=== PATIENT | male | born 1940 | race Caucasian/White ===

== ENCOUNTER → 2023-12-19 10:24 | Outpatient (REF) | payer MEDICARE, SELFPAY | LOC: DHCBS MAIN 10:24 | PROVIDERS: ATTENDING PHYSICIAN Internal Medicine Cardiovascular Disease; FAMILY PHYSICIAN Family Medicine | DX: I49.1 Atrial premature depolarization (principal) | CPT/HCPCS: 93306 ==

== ENCOUNTER → 2024-01-24 11:34 | Outpatient (REF) | payer MEDICARE, SELFPAY | LOC: DHCBC/DCA 11:34 | PROVIDERS: ATTENDING PHYSICIAN Internal Medicine Cardiovascular Disease; FAMILY PHYSICIAN Family Medicine | DX: I45.10 Unspecified right bundle-branch block (principal); R07.89 Other chest pain | CPT/HCPCS: 78452; 93017; A9500; J2785 ==

== ENCOUNTER 2024-01-28 07:34 | Day surgery (SDC) | payer MEDICARE, SELFPAY ==
[2024-01-28] VITALS (23 sets, daily range): BP systolic 115–163; BP diastolic 49–101; BMI 41.9
[2024-01-28 08:08] LABS: Hematocrit 47.1 % (39.0-52.0); Hemoglobin 16.5 g/dL (13.0-18.0); Mean Corpuscular Hgb 31.7 pg (27.0-31.0); Mean Corpuscular Volume 90.4 fL (80.0-94.0); Mean Platelet Volume 10.3 fL (7.4-10.4); Platelet Count 182 10^3/uL (130-400); Red Blood Cell Count 5.21 10^6/uL (4.70-6.10); Red Cell Dist. Width 13.3 % (11.5-14.5); White Blood Cell Count 8.9 10^3/uL (4.8-10.8)
[2024-01-28 08:14] LABS: Blood Urea Nitrogen 20 mg/dl (9-20); Calcium 9.3 mg/dl (8.4-10.2); Carbon Dioxide 25 mmol/L (22-30); Chloride 103 mmol/L (98-107); Estimated Creatinine Clearance 59 ml/min; Glucose 113 mg/dl (70-99); Potassium 4.8 mmol/L (3.5-5.1); Sodium 138 mmol/L (135-145); eGFR > 60.00
[2024-01-28] MEDS: NSS 353 ML IV (08:31)
[2024-01-28] MEDS: LOW STRENGTH ASPIRIN 81 MG PO (08:34)
--- NOTE | 2024-01-28 11:15 | PTCARENOTE ---
Pt arrived, oriented to room and unit. Aox3, no complaints of pain. Right radial site CDI. Educated pt on restrictions. Call osborne within reach.
--- NOTE | 2024-01-28 12:35 | ITS.CL.CATH ---
Acquisitions Logistics Analyst - Catheterization
Cardiac Catheterization
Procedure Report:
LEFT HEART CATHETERIZATION
Date of Procedure: January 28, 2024
Referring: Dr. Vaughn Moreland
PROCEDURES:
1. Left heart catheterization with coronary and single-plane left ventriculography
INDICATION: This is an 83-year-old gentleman with a past medical history notable for prostate cancer followed by Dr. Toy Souza ([phone]) at [facility]. He reports recurring issues with radiation cystitis and reports
intermittent bleeding on low-dose aspirin therapy which he states occurs on an almost weekly basis. He has a history of dizziness and frequent PACs as well as short runs of atrial tachycardia. He developed chest discomfort and recent stress study
high risk for which he is now referred for coronary angiography
ACCESS: Right radial artery, 6 Indonesian sheath
HEMODYNAMICS : (mmHg)
AO (s/d) : 118/74
CORONARY FINDINGS
DOMINANCE: Right
LEFT MAIN: Normal
LEFT ANTERIOR DESCENDING: The LAD arises normally from the left main and runs in the anterior interventricular groove. There is moderate calcification in the proximal to mid LAD. There is a 80-90% eccentric plaque in the proximal LAD and 40% mid
LAD stenosis beyond the first diagonal branch. The remainder of the LAD has minor irregularities but no focal obstructive stenosis.
RAMUS: Moderate caliber vessel is widely patent
CIRCUMFLEX: The circumflex is a medium caliber nondominant vessel that supplies a small to medium caliber OM1 and has a 40% proximal stenosis and small OM2
RIGHT CORONARY ARTERY: The right coronary artery was cannulated with an AR mod diagnostic catheter. The right coronary artery has mild irregularities over its course with no focal obstructive stenosis. The PDA is a medium caliber vessel that is
widely patent
VENTRICULOGRAPHY: Not done
RADIATION SUMMARY: Fluoro Time (min): 8.0, Dose (mGy): 556.7, DAP (Gy.cm2) : 31.4
Closure Device: TR band
CONCLUSIONS
1. High-grade proximal LAD stenosis (80-90% eccentric plaque) with moderate but noncritical coronary disease in the LAD, circumflex, RCA
2. Recurring hematuria secondary to radiation cystitis. I reached out to Dr. Toy Souza at [facility]
RECOMMENDATIONS
1. Will ask urology to evaluate the patient. Dr. Morales has been consulted.
2. Continue aspirin
3. Patient will likely return to the catheterization laboratory on 01/29/2024 for stenting of the proximal LAD and will attempt to limit duration of dual antiplatelet therapy. I believe PCI risks probably remain preferable to robotic BARRETO-LAD or
open BARRETO-LAD given his age.
Copy to: Dr. Vaughn Moreland
--- NOTE | 2024-01-28 13:22 | CM ---
spoke to pt in room, he is prev indep, lives with his in a 1 story condo with an elevator in the dg. she denies any dme's or dc planning needs. plan is for dc to home when medically stable.
--- NOTE | 2024-01-28 13:47 | CONSULT.CT ---
Consultation
-
Date/Time Consultation Requested: 01/28/24
Date/Time Consultation Performed: 01/28/24 1345
Requesting Provider: Dr. Vaughn Calderon MD.
Performing Provider: Unique Aguilar PA-C on behalf of Dr. Frankie Burnham MD.
Reason for Consultation: Surgical evaluation for coronary artery revascularization
Patient History
Physicians
Family Physician: Dr. Petra Steele MD.
Outpatient Clinical Systems Analyst: Dr. Vaughn Moreland MD.
Inpatient Clinical Systems Analyst: Dr. Vaughn Calderon MD.
History of Present Illness
Patient is an extremely pleasant 83-year-old male with a past medical history significant for prostate cancer status post prostatectomy and radiation in 2007 performed at [facility] by Dr. Vaughn Gorman MD. patient has ongoing
radiation cystitis has been experiencing hematuria.
He has had ongoing and progressive dizziness associated with vertigo as well as chest discomfort. This has been described as stable angina and presents with exertion and subsides with rest. On 01/24/2024 patient underwent nuclear stress test which
was abnormal showing distal anterior, apical, and inferior apical and septal ischemia. Ejection fraction fraction was estimated to be 59%.
Given abnormal stress test he was scheduled for an elective coronary angiogram. Subsequent cardiac catheterization revealed single-vessel proximal LAD disease.
Cardiothoracic surgery was consulted for evaluation regarding coronary artery revascularization.
Patient also underwent transthoracic echocardiogram on 12/19/23 revealing an ejection fraction of 62%. Mitral valve revealing trace MR. Aortic valve revealing trace AI. Tricuspid valve revealing trace TR. And a pulmonic valve revealing trace NJ.
LV SD 24, LVDD 40, PAP's could not be determined.
Past Medical History
Past Medical History: Other
Prostate cancer status post prostatectomy and radiation�2007 at [facility] by Dr. Vaughn Gorman
Radiation cystitis
History of frequency and hematuria
HTN
HLD
GERD
Depression
History of UTI
Morbid obesity, BMI 41.9
Past Surgical History
Past Surgical History: Other
Bilateral inguinal hernia repair 2005
Cataract surgery
Tonsillectomy
Hemorrhoid banding/repair of rectal fistula 2013
Prostatectomy 2007
TURP
Dental History
Noncontributory
Family History
Mother: at Age and Cause of (Complications of heart disease)
Father: at Age
Family Medical History: CAD
Social History
Alcohol: Daily (1.5-2.5 glasses of wine daily)
Drug: None
Tobacco: Former Smoker (Quit 50 years ago)
Personal: (Lives with his . Has a total of 2 children)
Living: With Spouse
Employment: Retired (Formally worked in the [employer] industry)
Allergies
Allergy/AdvReac Type Severity Reaction Status Date / Time
azithromycin [From Zithromax] Allergy Unknown Unknown Verified 01/28/24 08:30
piperacillin sodium Allergy rash/itchin Verified 04/18/23 10:40
[From Zosyn] g/headache/
wheezing
sertraline [From Zoloft] Allergy Unknown Verified 04/18/23 10:40
tazobactam sodium Allergy Possible Verified 04/18/23 10:40
[From Zosyn] ADR-rash/itching/headache
Home Medications
Medication Instructions Recorded Confirmed Type
aspirin 81 mg tablet,delayed 81 mg PO QPM 06/22/14 01/28/24 History
release
citalopram 20 mg tablet 20 mg PO DAILY 06/22/14 01/28/24 History
benazepril 10 mg tablet (Lotensin) 10 mg PO HS 08/29/19 01/28/24 History
cholecalciferol (vitamin D3) 25 1,000 units PO DAILY 08/29/19 01/28/24 History
mcg (1,000 unit) tablet
methylcellulose (laxative) 500 mg 1,000 mg PO BID 08/29/19 01/28/24 History
tablet (Citrucel)
miconazole nitrate 2 % topical 1 applic topical DAILYPRN PRN 08/29/19 01/28/24 History
ointment (Triple Paste AF) FORESKIN IRRITATION
polyvinyl alcohol-povidone (PF) 1 drp BOTH EYES Q4HPRN PRN dry eye 08/29/19 01/28/24 History
1.4 %-0.6 % eye drops in a
dropperette (Refresh Classic (PF))
tafluprost (PF) 0.0015 % eye drops 1 ea BOTH EYES DAILY 08/29/19 01/28/24 History
in a dropperette (Zioptan (PF))
cyanocobalamin (vitamin B-12) 1,000 mcg PO DAILY #30 tabs 08/31/19 01/28/24 Rx
1,000 mcg tablet
thiamine HCl (vitamin B1) 100 mg 100 mg PO BID #20 tabs 08/31/19 01/28/24 Rx
tablet
furosemide 20 mg tablet (Lasix) 20 mg PO DAILY PRN swelling 01/28/24 01/28/24 History
meclizine 25 mg tablet 12.5 mg PO Q8HPRN PRN dizziness 01/28/24 01/28/24 History
metoprolol succinate 25 mg 25 mg PO DAILY 01/28/24 01/28/24 History
tablet,extended release 24 hr
ropinirole 0.5 mg tablet 0.5 mg PO QHS 01/28/24 01/28/24 History
timolol maleate 0.5 % eye drops 1 drp ophthalmic (eye) BID 01/28/24 01/28/24 History
trospium 20 mg tablet 20 mg PO BID 01/28/24 01/28/24 History
Review of Systems
-
History Source: Patient
General: Reports Fatigue; Denies Fever, Weight Gain, Weight Loss, Night Sweats or Chills
HEENT: Denies Visual Changes, Dysphagia, Hoarseness or Mouth Pain
Respiratory: Denies SOB, YAÑEZ, Cough, Asthma or PND
Cardiac: Reports Chest Pain and Edema; Denies CAD, Known Vascular Disease, Palpitations, Nausea, Vomiting or Diaphoresis
Abdomen/GI: Reports Reflux and Indigestion; Denies Abdominal Pain, Nausea, Vomiting, Diarrhea, Constipation, BRBPR or Ulcers
: Reports Frequency, Hematuria and Nocturia; Denies Incontinence
Musculoskeletal: Reports Edema; Denies Myalgias, Arthralgias or Joint Pain
Skin: Denies Rash
Neurological: Reports Dizzy; Denies CVA, TIA, Headaches, Syncope, Weakness, Numbness or Seizures
Vascular: Denies Claudication or PVD
Physical Exam
Vital Signs
Temp 97.6 F 01/28/24 11:15
Temp route: Oral 01/28/24 11:15
Pulse 61 01/28/24 10:40
Rhythm: Normal sinus rhythm 01/28/24 12:24
With- PAC's 01/28/24 12:24
Resp Rate 18 01/28/24 11:15
Blood pressure 141/54 01/28/24 10:41
Blood pressure extremity used: Left upper arm 01/28/24 11:15
Position: Lying 01/28/24 11:15
MAP (cuff-Yesy Monitor) 70 01/28/24 10:41
SaO2 97 01/28/24 11:15
Oxygen Mode of Delivery Room air 01/28/24 11:15
Can the patient verbally communicate their pain? Yes 01/28/24 11:54
Actual Weight 259 lb 8 oz 01/28/24 07:56
Body Mass Index (BMI) 41.9 01/28/24 07:56
Labs
01/28/24 07:49
01/28/24 07:49
Exam
General: Well Developed, Well Nourished, No Apparent Distress and Other (Obese)
HEENT: Normocephalic, Moist Mucous Membranes, Atraumatic, PERRLA and EOMI
Neck: Trachea Midline; Negative Carotid Bruit
Respiratory: Clear; Negative Wheezes, Crackles, Rhonchi or Accessory Muscle Use
Cardiac: S1/S2 and Regular Rhythm; Negative Murmur, Rub or Gallop
GI: Soft, Non Tender, Non Distended and Normal Bowel Sounds
Rectal: Deferred by Provider
Skin: Warm and Dry; Negative Rash
Neuro: AO x 3, No Motor Deficits and CN X-XII Intact
Extremities: Lower Level Edema (Trace); Negative Upper Level Edema, Upper Level Cyanosis, Lower Level Cyanosis, Upper Level Clubbing or Lower Level Clubbing
Psych: Calm
Assessment / Plan
-
Assessment:
83-year-old male with PMH of:
Prostate cancer status post prostatectomy and radiation�200 at [facility] by Dr. Vaughn Gorman
Radiation cystitis
History of frequency and hematuria
HTN
HLD
GERD
Depression
History of UTI
Morbid obesity, BMI 41.9
Now with newly diagnosed:
Single-vessel proximal LAD disease with preserved left ventricular ejection fraction
Plan:
Patient's case will be discussed with attending physician Dr. Frankie Burnham MD.
Patient is being evaluated by the cardiothoracic surgery service for coronary artery revascularization. However, given his history of prostate cancer status post prostatectomy and radiation with radiation cystitis and hematuria PCI is also being
considered.
Patient's STS risk stratification score was calculated and outlined below.
Attending physician will review the patient's case and further decision making will be had after full review and discussion with Cardiology.
Procedure Type:�Isolated CABG
PERIOPERATIVE OUTCOME ESTIMATE %
Operative Mortality 2.89%
Morbidity & Mortality 9.64%
Stroke 0.779%
Renal Failure 1.73%
Reoperation 2.19%
Prolonged Ventilation 5.76%
Deep Sternal Wound Infection 0.224%
Long Hospital Stay (>14 days) 5.81%
Short Hospital Stay (<6 days)* 29.3%
Clinical Summary
Planned Surgery: Isolated CABG, Urgent, First cardiovascular surgery
Demographics: 83 year old, male, 117kg, 168cm, BMI: 41.4 kg/m�
Lab Values: Creatinine: 1.1 mg/dL, Hematocrit: 47.1%, WBC Count: 8.9 10�/�L, Platelet Count: 333726 cells/�L
Substance Abuse: Never smoker
Risk Factors / Comorbidities: Cancer <=5 yrs, Hypertension
Cardiac Status: Ejection Fraction = 55%
Coronary Artery Disease: 3 vessels diseased, Proximal LAD Stenosis >= 70%, Unstable Angina
Valve Disease: Trivial/Trace AR, Trivial/Trace MR, Trivial/Trace TR
--- NOTE | 2024-01-28 15:42 | PTCARENOTE ---
Assumed care of pt from day RN. Pt received awake and alert, Ox3. VSS, CM shows NSR with occasional PAC's, POX 96% on RA. Right radial site CDI with normal CMS to extremity. Awaiting urology CX. He denies any pain or discomfort.
--- NOTE | 2024-01-28 17:38 | W.PN.URO.CBU ---
Today's Communication / Plan
-
PROBABLE STENT TOMORROW BUT RECOMMEND DISCUSSSUIN WITH DR MIN TEAM AND I REGAN TEXTED PA X 2 TODAY
Assessment / Plan
-
DIFFICULT POSITION PT HIGH RISK FOR SURGERY AND YET HIGH RISK FOR BLEDING FROM DAPT WITH STENT IT IS POSSIBLE THAT THECOMBINED BLAEDING ON DAPT MAY ACTUALLLYBE ESS THAN THE RISK FOR OPEN OR ROBOTIC SUT-RGERY DR WARD TEAM NOTIFIED
Diagnosis
-
Date of Service: January 28, 2024
-
Patient Diagnosis:
radiation cystitis with weekly hematuria cured prostate cancer preop stents and DAPT
Post Op Day:
Subjective
-
NO HEMATURIA TODAY OK STREAM
Objective
-
Vital Signs
Temp Pulse Resp BP Pulse Ox
98.7 F 72 18 152/67 95
01/28/24 15:30 01/28/24 16:45 01/28/24 11:15 01/28/24 16:30 01/28/24 15:36
Intake and Output
01/27/24 01/28/24 01/29/24
06:59 06:59 06:59
Intake Total 654 / 654
Balance 654 / 654
Intake:
Oral fluids 300 / 300
IV fluids (Total) 354 / 354
Laboratory Results
01/28/24 07:49
01/28/24 07:49
Review of Systems
-
: Bleeding and Dark Urine
Physical Exam
-
General - well developed, well nourished, no acute distress
Chest - clear bilaterally
Abdomen - soft, non-tender, positive bowel sounds, no CVAT, no incisional pain or distention
Genitalia - normal
Rectal - normal
Skin - warm & dry with no rash
Neuro - AOx3, no motor deficits
Extremities - no clubbing, no cyanosis, no edema
Incision - clean, dry
Dressing - clean, dry, intact
Counseling
-
PER CARDIOLOGY
Care Review
Data Reviewed
Discussed with: Cardiology (CT SURGERY ), Hospitalist and Family
Total Time Spent with Patient (in minutes): 1 HOUR
[2024-01-28] MEDS: METAMUCIL, KONSYL PO (20:00)
[2024-01-28] MEDS: TIMOPTIC 0.5% OPHTHALMIC SOLUTION 1 DROP OPHTH (20:00)
[2024-01-28] MEDS: REQUIP 0.5 MG PO (22:27)
[2024-01-28] MEDS: ZESTRIL 10 MG PO (22:27)
--- NOTE | 2024-01-28 23:37 | PTCARENOTE ---
Pt rec'd at shift change with family at bedside. Family requesting Doctors call spouse when in room. Not sure if will catch all that is being said.
Right radial site with DDI. Pt npo for probable cath in am. Call osborne within reach.
[2024-01-29 04:50] VITALS: BP 145/63
[2024-01-29 05:37] LABS: Hemoglobin 16.1 g/dL (13.0-18.0); Mean Corp Hgb Conc. 34.3 g/dL (33.0-37.0); Mean Corpuscular Volume 90.6 fL (80.0-94.0); Mean Platelet Volume 10.7 fL (7.4-10.4); Platelet Count 176 10^3/uL (130-400); Red Blood Cell Count 5.19 10^6/uL (4.70-6.10); Red Cell Dist. Width 13.5 % (11.5-14.5)
[2024-01-29 06:02] LABS: Blood Urea Nitrogen 17 mg/dl (9-20); Calcium 8.8 mg/dl (8.4-10.2); Carbon Dioxide 25 mmol/L (22-30); Chloride 108 mmol/L (98-107); Estimated Creatinine Clearance 65 ml/min; Glucose 103 mg/dl (70-99); HDL Cholesterol 36 mg/dl; LDL Cholesterol, Calculated 54 mg/dl; Potassium 4.2 mmol/L (3.5-5.1); Sodium 136 mmol/L (135-145); Total Cholesterol 117 mg/dl (50-199); Triglyceride 139 mg/dl (10-149); Very Low Density Lipoprotein 27 mg/dl (0-30); eGFR > 60.00
[2024-01-29 06:56] VITALS: BP 146/83
[2024-01-29] MEDS: ASPIR LOW (ENTERIC COATED) 81 MG PO (07:49)
[2024-01-29] MEDS: TOPROL XL 25 MG PO (07:49)
[2024-01-29] MEDS: PLAVIX 300 MG PO (07:49)
[2024-01-29] MEDS: CELEXA 20 MG PO (07:49)
[2024-01-29] MEDS: METAMUCIL, KONSYL 1 PACKET PO (07:50)
[2024-01-29] MEDS: TIMOPTIC 0.5% OPHTHALMIC SOLUTION 1 DROP OPHTH ×2 (07:50→20:06)
--- NOTE | 2024-01-29 07:53 | W.PN.CARDCBS ---
Addendum entered and electronically signed by Vaughn Moreland MD 01/29/24 09:26:
Patient without complaints, family at bedside
allergies reviewed, Home medicines reviewed,
Current medications: Metoprolol ER 25 mg a day, citalopram 20 mg a day, Requip, lisinopril 10 mg at bedtime, aspirin 81 mg a day, clopidogrel 75 mg a day after oral load
PMH/PSH/SH/FH: Reviewed
Review of systems: As above
146/83, pulse 66, no distress, head neck exam unremarkable, lungs clear, regular rate and rhythm, JVD okay, no obvious murmurs, abdomen obese, extremities with 1+ edema neuro nonfocal
Hemoglobin 16.1
BUN and creatinine 17 and 1, potassium 4.2
Assessment:
CAD with angina, severe proximal LAD and moderate mid LAD stenosis
History of prostate cancer status post prostatectomy and radiation
Radiation cystitis, with intermittent bleeding
PACs
Brief atrial tachycardia
Orthostatic hypotension
Chronic right bundle branch block
Hypercholesterolemia
Obesity
Obstructive sleep apnea, on CPAP
History of vertigo
Daily alcohol use
Former smoker
ECHO 12/19/2023: EF 62%, no regional wall motion abnormalities noted, mild concentric LVH
Lexiscan nuclear stress test 01/24/2024: Abnormal sestamibi perfusion imaging with distal anterior, apical, inferior apical and septal ischemia, EF 59%
Plan:
Trial of DAPT followed by LAD PCI if hematuria is not severe. If PCI performed, if necessary could switch to single agent antiplatelet, possibly Plavix alone early on if needed.
Tentative discharge tomorrow.
Discussed with patient and family.
Original Note:
Today's Communication / Plan
-
after multidisciplinary discussions 01/27, plan for 1-2 week trial of DAPT with asa, plavix
if able to tolerate, would plan for OP LAD PCI
continue toprol, lisinopril
add statin
for possible DC in AM
Impression / Plan
-
Primary Copy Editor: Dr. BRADEN Moreland
Primary Oncologist: Dr. Toy Souza at [facility] [phone]
Assessment:
Chest discomfort
Abnormal stress test
History of prostate cancer status post prostatectomy and radiation
Radiation cystitis, with intermittent bleeding
PACs
Brief atrial tachycardia
Orthostatic hypotension
Chronic right bundle branch block
Hypercholesterolemia
Obesity
Obstructive sleep apnea, on CPAP
History of vertigo
Daily alcohol use
Former smoker
ECHO 12/19/2023: EF 62%, no regional wall motion abnormalities noted, mild concentric LVH
Lexiscan nuclear stress test 01/24/2024: Abnormal sestamibi perfusion imaging with distal anterior, apical, inferior apical and septal ischemia, EF 59%
Plan:
-Patient was seen in the office as a new patient and complained of 'funny feeling' in his chest with activity. He underwent Lexiscan nuclear stress test, abnormal with results as above and was arranged for cardiac catheterization which took place
01/28/2024. Cath with significant proximal LAD lesion, however patient also expressed intermittent bleeding related to radiation cystitis, therefore was not stented yesterday. there was significant concern from urology about high risk of
rebleeding so CT surgery consulted for eval.
-Interventional cardiology discussed with CT surgery as well as patient's oncologist, Dr. Souza at [facility] and urology on 01/27. Given age and comorbidities, not felt to be ideal CABG candidate. Hemoglobin/hematocrit also stable in setting of
intermittent bleeding on asa. plan for trial of dual antiplatelet therapy on aspirin and Plavix prior to considering stenting of LAD. Would plan for outpatient follow-up next week, and if tolerating DAPT, would arrange for LAD PCI shortly thereafter
-No bleeding overnight
-No chest pain overnight
-R wrist site c/d/i
-Continue aspirin. Will load with 300 mg Plavix today, and start 75 mg in a.m. hgb 16.1
-in SR with frequent PACs in pattern of bigeminy/atrial couplets/triplets on review of tele. no afib noted
-Continue outpatient Toprol, lisinopril. consider uptitration of BB as able, however also with dizziness/orthostasis history
-LDL 54. add statin
-would observe overnight. possible DC in AM
-d/w nursing
Progress Note - Copy Editor
Subjective
Date of Service: January 29, 2024
no CP, hematuria overnight
Objective
Labs:
01/29/24 04:59
01/29/24 05:00
Labs
Hgb 16.1 g/dL (13.0-18.0) 01/29/24 04:59
Hct 47.0 % (39.0-52.0) 01/29/24 04:59
Plt Count 176 10^3/uL (130-400) 01/29/24 04:59
Sodium 136 mmol/L (135-145) 01/29/24 05:00
Potassium 4.2 mmol/L (3.5-5.1) 01/29/24 05:00
BUN 17 mg/dl (9-20) 01/29/24 05:00
Creatinine 1.0 mg/dL (0.7-1.3) 01/29/24 05:00
Glucose 103 mg/dl (70-99) H 01/29/24 05:00
Vital Signs and I&O:
Vital Signs
Temp Pulse Resp BP Pulse Ox
97.9 F 70 18 145/63 95
01/29/24 06:54 01/29/24 06:54 01/29/24 06:54 01/29/24 04:50 01/29/24 06:54
Vital Signs
Temp Pulse Resp BP Pulse Ox
97.9 F 70 18 145/63 95
01/29/24 06:54 01/29/24 06:54 01/29/24 06:54 01/29/24 04:50 01/29/24 06:54
Intake & Output
01/26/24 01/27/24 01/28/24 01/29/24
07:59 07:59 07:59 07:59
Intake Total 654 / 654
Balance 654 / 654
Physical Exam
Physical Exam
GEN: No distress, awake, alert, oriented x3. obese
HEENT: supple, anicteric, mmm, eomi
LUNGS: CTA B/L, no wheezes/rales
CV: Reg, S1/S2, no murmur
ABD: soft, BS+, NT/ND
EXT: No cyanosis, clubbing, edema
NEURO: Gross non-focal
SKIN: Warm, pink, dry. No rash. R wrist site c/d/i.
--- NOTE | 2024-01-29 08:49 | W.PN.URO.CBU ---
Today's Communication / Plan
-
per cardilogy
Assessment / Plan
-
DIFFICULT POSITION PT HIGH RISK FOR SURGERY AND YET HIGH RISK FOR BLEDING FROM DAPT WITH STENT IT IS POSSIBLE THAT THECOMBINED BLAEDING ON DAPT MAY ACTUALLLYBE ESS THAN THE RISK FOR OPEN OR ROBOTIC SUT-RGERY DR WARD TEAM NOTIFIED
Diagnosis
-
Date of Service: January 29, 2024
-
Patient Diagnosis:
Post Op Day:
Patient Diagnosis:
radiation cystitis with weekly hematuria cured prostate cancer preop stents and DAPT
Post Op Day:
Subjective
-
no gu complaints
Objective
-
Vital Signs
Temp Pulse Resp BP Pulse Ox
97.9 F 66 18 146/83 95
01/29/24 06:54 01/29/24 07:49 01/29/24 06:54 01/29/24 07:49 01/29/24 06:54
Intake and Output
01/28/24 01/29/24 01/30/24
06:59 06:59 06:59
Intake Total 654 / 654
Balance 654 / 654
Intake:
Oral fluids 300 / 300
IV fluids (Total) 354 / 354
Laboratory Results
01/29/24 04:59
01/29/24 05:00
Review of Systems
-
: No Symptoms
Physical Exam
-
General - well developed, well nourished, no acute distress
Chest - clear bilaterally
Abdomen - soft, non-tender, positive bowel sounds, no CVAT, no incisional pain or distention
Genitalia - normal
Rectal - normal
Skin - warm & dry with no rash
Neuro - AOx3, no motor deficits
Extremities - no clubbing, no cyanosis, no edema
Incision - clean, dry
Dressing - clean, dry, intact
Counseling
-
per cardilogy
Care Review
Data Reviewed
Discussed with: Family
[2024-01-29 11:35] VITALS: BP 117/87
[2024-01-29 15:17] VITALS: BP 139/77
[2024-01-29] MEDS: LIPITOR 40 MG PO (18:07)
[2024-01-29 19:28] VITALS: BP 128/61
[2024-01-29] MEDS: RESTASIS 0.05% OPHTHALMIC EMULSION 1 DROPS OPHTH (20:06)
[2024-01-29] MEDS: METAMUCIL, KONSYL PO (20:06)
--- NOTE | 2024-01-29 21:23 | PTCARENOTE ---
Pt rec'd at change of shift in bed. awake,alert sinus with pac's on telemetry. 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 Incont once in bed, then voided in toilet. urine yellow, no signs of blood.
[2024-01-29 22:34] VITALS: BP 119/47
[2024-01-29] MEDS: ZESTRIL 10 MG PO (22:36)
[2024-01-29] MEDS: REQUIP 0.5 MG PO (22:36)
[2024-01-30 04:14] VITALS: BP 146/75
[2024-01-30 05:33] VITALS: BMI 39.5
--- NOTE | 2024-01-30 05:57 | PTCARENOTE ---
Pt up early this morning doing am care. Pt reports urine remains yellow without signs of hematuria. Sinus with pac's on telemetry.
[2024-01-30 07:21] VITALS: BP 144/78
[2024-01-30] MEDS: ASPIR LOW (ENTERIC COATED) 81 MG PO (08:30)
[2024-01-30] MEDS: CELEXA 20 MG PO (08:31)
[2024-01-30] MEDS: TIMOPTIC 0.5% OPHTHALMIC SOLUTION 1 DROP OPHTH (08:31)
[2024-01-30] MEDS: TOPROL XL 25 MG PO (08:31)
[2024-01-30] MEDS: PLAVIX 75 MG PO (08:31)
[2024-01-30] MEDS: RESTASIS 0.05% OPHTHALMIC EMULSION 1 DROPS OPHTH (08:32)
[2024-01-30] MEDS: METAMUCIL, KONSYL PO (08:33)
--- NOTE | 2024-01-30 09:02 | W.PN.CARDCBS ---
Addendum entered and electronically signed by Yari Coker PA-C 01/30/24 16:56:
[id number]
Addendum entered and electronically signed by Dago Otto MD 01/30/24 12:49:
I saw and examined the patient.
The PAN CLEANER or PA's note was reviewed and I agree with the note.
Comment: General: Well developed, well nourished in NAD.
Stable cardiology status for discharge
Will assess how he weights dual antiplatelet agents before proceeding with LAD stent. Discussed with patient and family in detail
Follow-up as been arranged
Original Note:
Today's Communication / Plan
-
Plan for trial of DAPT. Hgb stable. If no recurrence of hematuria, plan for office visit next week to arrange for LAD PCI
Plan for discharge today
Impression / Plan
-
Primary Pig Machine Supervisor: Dr. BRADEN Moreland
Primary Oncologist: Dr. Toy Souza at [facility] [phone]
Assessment:
Chest discomfort
Abnormal stress test
Prox LAD lesion by cath 01/28/24
History of prostate cancer status post prostatectomy and radiation
Radiation cystitis, with intermittent bleeding
PACs
Brief atrial tachycardia
Orthostatic hypotension
Chronic right bundle branch block
Hypercholesterolemia
Obesity
Obstructive sleep apnea, on CPAP
History of vertigo
Daily alcohol use
Former smoker
ECHO 12/19/2023: EF 62%, no regional wall motion abnormalities noted, mild concentric LVH
Lexiscan nuclear stress test 01/24/2024: Abnormal sestamibi perfusion imaging with distal anterior, apical, inferior apical and septal ischemia, EF 59%
Plan:
-Patient was seen in the office as a new patient and complained of 'funny feeling' in his chest with activity. He underwent Lexiscan nuclear stress test, abnormal with results as above and was arranged for cardiac catheterization which took place
01/28/2024. Cath with significant proximal LAD lesion, however patient also expressed intermittent bleeding related to radiation cystitis, therefore was not stented yesterday. there was significant concern from urology about high risk of
rebleeding so CT surgery consulted for eval.
-Interventional cardiology discussed with CT surgery as well as patient's oncologist, Dr. Souza at [facility] and urology on 01/27. Given age and comorbidities, not felt to be ideal CABG candidate. Hemoglobin/hematocrit also stable in setting of
intermittent bleeding on asa. plan for trial of dual antiplatelet therapy on aspirin and Plavix prior to considering stenting of LAD. Would plan for outpatient follow-up next week, and if tolerating DAPT, would arrange for LAD PCI shortly thereafter
-remains without hematuria overnight. also without CP
-hgb stable at 17.5 on 01/29
-continue asa, plavix
-in SR with frequent PACs, often in pattern of bigeminy
-Continue outpatient Toprol, lisinopril. consider uptitration of BB as able, however also with dizziness/orthostasis history
-LDL 54. lipitor added this admission
-plan for DC today
-knows to call office with hematuria. knows to return to ER with chest pain
-has office visit with oncologist on Wednesday 01/31.
-d/w nursing
Progress Note - Pig Machine Supervisor
Subjective
Date of Service: January 30, 2024
No chest pain or hematuria overnight
Objective
Labs:
01/29/24 05:00
Labs
Hgb 16.1 g/dL (13.0-18.0) 01/29/24 04:59
Hct 47.0 % (39.0-52.0) 01/29/24 04:59
Plt Count 176 10^3/uL (130-400) 01/29/24 04:59
Sodium 136 mmol/L (135-145) 01/29/24 05:00
Potassium 4.2 mmol/L (3.5-5.1) 01/29/24 05:00
BUN 17 mg/dl (9-20) 01/29/24 05:00
Creatinine 1.0 mg/dL (0.7-1.3) 01/29/24 05:00
Glucose 103 mg/dl (70-99) H 01/29/24 05:00
Vital Signs and I&O:
Vital Signs
Temp Pulse Resp BP Pulse Ox
98 F 69 20 144/78 99
01/30/24 07:17 01/30/24 07:45 01/30/24 07:17 01/30/24 07:21 01/30/24 08:25
Vital Signs
Temp Pulse Resp BP Pulse Ox
98 F 69 20 144/78 99
01/30/24 07:17 01/30/24 07:45 01/30/24 07:17 01/30/24 07:21 01/30/24 08:25
Intake & Output
01/28/24 01/29/24 01/30/24 01/31/24
07:59 07:59 07:59 07:59
Intake Total 654 / 654 120 / 120 180 / 180
Balance 654 / 654 120 / 120 180 / 180
Physical Exam
Physical Exam
GEN: No distress, awake, alert, oriented x3. obese. sitting in chair
HEENT: supple, anicteric, mmm, eomi
LUNGS: CTA B/L, no wheezes/rales
CV: Reg, S1/S2, no murmur
ABD: soft, BS+, NT/ND
EXT: No cyanosis, clubbing, edema
NEURO: Gross non-focal
SKIN: Warm, pink, dry. No rash.
[2024-01-30 09:19] LABS: Hematocrit 50.9 % (39.0-52.0); Hemoglobin 17.5 g/dL (13.0-18.0)
--- NOTE | 2024-01-30 09:50 | W.DS.TRANS ---
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
-
Discharge Instructions:
Discharge Diagnosis/Procedures Cardiac catheterization, LAD lesion, hematuria
Diet Low Cholesterol
Activity No strenuous activity
Driving Restrictions No driving for 24 hours
Instructions:
Stand-Alone Forms: DC Instructions- Cath/EP Lab
Changes to Home Medications: Yes
Discharge Medications:
DC Medications w/original date entered in [employer]
aspirin 81 mg tablet,delayed release 81 mg PO QPM 06/22/14
citalopram 20 mg tablet 20 mg PO DAILY 06/22/14
benazepril 10 mg tablet (Lotensin) 10 mg PO HS 08/29/19
cholecalciferol (vitamin D3) 25 mcg (1,000 unit) tablet 1,000 units PO DAILY 08/29/19
methylcellulose (laxative) 500 mg tablet (Citrucel) 1,000 mg PO BID 08/29/19
miconazole nitrate 2 % topical ointment (Triple Paste AF) 1 applic topical DAILYPRN PRN FORESKIN IRRITATION 08/29/19
polyvinyl alcohol-povidone (PF) 1.4 %-0.6 % eye drops in a dropperette (Refresh Classic (PF)) 1 drp BOTH EYES Q4HPRN PRN dry eye 08/29/19
tafluprost (PF) 0.0015 % eye drops in a dropperette (Zioptan (PF)) 1 ea BOTH EYES DAILY 08/29/19
cyanocobalamin (vitamin B-12) 1,000 mcg tablet 1,000 mcg PO DAILY #30 tabs 08/31/19
thiamine HCl (vitamin B1) 100 mg tablet 100 mg PO BID #20 tabs 08/31/19
furosemide 20 mg tablet (Lasix) 20 mg PO DAILY PRN swelling 01/28/24
meclizine 25 mg tablet 12.5 mg PO Q8HPRN PRN dizziness 01/28/24
metoprolol succinate 25 mg tablet,extended release 24 hr 25 mg PO DAILY 01/28/24
ropinirole 0.5 mg tablet 0.5 mg PO QHS 01/28/24
timolol maleate 0.5 % eye drops 1 drp ophthalmic (eye) BID 01/28/24
trospium 20 mg tablet 20 mg PO BID 01/28/24
atorvastatin 40 mg tablet 40 mg PO QPM #30 tabs 01/30/24
clopidogrel 75 mg tablet 75 mg PO DAILY #30 tabs 01/30/24
Home Medication Changes
plavix and lipitor are new
Pending Results: No
Total time spent discharging patient (in min): 35
--- NOTE | 2024-01-30 10:01 | CM ---
CM following for DC planning needs.
Plan for DC today. There are no identified DC needs.
Plan: HOME, no needs.
--- NOTE | 2024-01-30 11:28 | PTCARENOTE ---
Pt seen by Brenice and Fam. Telemetry and IV device removed. Discharge instructions reviewed with pt and his and daughter regarding activity and driving guidelines, wound care, medications and their possible side effects, reporting
cares and concerns and follow up appt's. Very good understanding verbalized. Pt escorted out via wheelchair and discharged to home.
--- NOTE | 2024-01-30 15:07 | W.PN.URO.CBU ---
Today's Communication / Plan
-
home
Assessment / Plan
-
DIFFICULT POSITION PT HIGH RISK FOR SURGERY AND YET HIGH RISK FOR BLEDING FROM DAPT agree with dapt and if tolerted gets stwent if blledds then t/c robotic surgery home today no bleeding edgar aware to call navneet sheppard if blieesds and orm
routine f/up
Diagnosis
-
Date of Service: January 30, 2024
-
Patient Diagnosis:
Post Op Day:
Patient Diagnosis:
Post Op Day:
Patient Diagnosis:
radiation cystitis with weekly hematuria cured prostate cancer preop stents and DAPT
Post Op Day:
Subjective
-
nobleeding yet on dapt
Objective
-
Vital Signs
Temp Pulse Resp BP Pulse Ox
98 F 67 20 144/78 99
01/30/24 07:17 01/30/24 10:00 01/30/24 07:17 01/30/24 07:21 01/30/24 08:25
Intake and Output
01/29/24 01/30/24 01/31/24
06:59 06:59 06:59
Intake Total 654 / 654 120 / 120 180 / 180
Balance 654 / 654 120 / 120 180 / 180
Intake:
Oral fluids 300 / 300 120 / 120 180 / 180
IV fluids (Total) 354 / 354
Other:
Number of approximated SMALL 1
amounts of urine
Number of approximated MODERATE 1
amounts of urine
How many times incontinent 1
SATURATED amount urine
Laboratory Results
01/30/24 09:05
01/29/24 05:00
Review of Systems
-
: No Symptoms
Physical Exam
-
General - well developed, well nourished, no acute distress
Chest - clear bilaterally
Abdomen - soft, non-tender, positive bowel sounds, no CVAT, no incisional pain or distention
Genitalia - normal
Rectal - normal
Skin - warm & dry with no rash
Neuro - AOx3, no motor deficits
Extremities - no clubbing, no cyanosis, no edema
Incision - clean, dry
Dressing - clean, dry, intact
Counseling
-
home
== END 2024-01-30 11:15 | disposition home or self-care (01) ==
LOC: CATH 07:34
PROVIDERS: Nurse Practitioner; Physician Assistant; ATTENDING PHYSICIAN Internal Medicine Interventional Cardiology; CONSULT PHYSICIAN Specialist; FAMILY PHYSICIAN Family Medicine
DX: I25.110 Atherosclerotic heart disease of native coronary artery with unstable angina pectoris (principal); K21.9 Gastro-esophageal reflux disease without esophagitis; F32.A Depression, unspecified; Z87.440 Personal history of urinary (tract) infections; E66.01 Morbid (severe) obesity due to excess calories; Z68.41 Body mass index [BMI] 40.0-44.9, adult; N30.41 Irradiation cystitis with hematuria; Z85.46 Personal history of malignant neoplasm of prostate; Z90.79 Acquired absence of other genital organ(s); Z87.891 Personal history of nicotine dependence; G47.33 Obstructive sleep apnea (adult) (pediatric); R42 Dizziness and giddiness; I47.19 Other supraventricular tachycardia; I45.10 Unspecified right bundle-branch block; E78.00 Pure hypercholesterolemia, unspecified; I49.1 Atrial premature depolarization; I11.0 Hypertensive heart disease with heart failure; Z79.82 Long term (current) use of aspirin; R07.89 Other chest pain; Z79.02 Long term (current) use of antithrombotics/antiplatelets
CPT/HCPCS: 80048; 80061; 85014; 85018; 85027; 93454; C1894; Q9967

== ENCOUNTER → 2024-02-08 09:38 | Outpatient (REF) | payer MEDICARE, SELFPAY ==
[2024-02-08 12:55] LABS: ALT (SGPT) 45 U/L (0-50); AST (SGOT) 31 U/L (17-59); Albumin 4.2 g/dl (3.5-5.0); Alkaline Phosphatase 90 U/L (38-126); Direct Bilirubin 0.1 mg/dl (0.0-0.4); HDL Cholesterol 38 mg/dl; LDL Cholesterol, Calculated 14 mg/dl; Total Bilirubin 0.7 mg/dl (0.2-1.3); Total Cholesterol 69 mg/dl (50-199); Total Protein 6.3 g/dl (6.3-8.2); Triglyceride 85 mg/dl (10-149); Very Low Density Lipoprotein 17 mg/dl (0-30)
[2024-02-08 13:38] LABS: Glycohemoglobin (HgbA1c) 6.2 % (4.0-5.6)
== END ==
LOC: HWLAB 09:38
PROVIDERS: ATTENDING PHYSICIAN Family Medicine
DX: E78.2 Mixed hyperlipidemia (principal); R73.01 Impaired fasting glucose; E55.9 Vitamin D deficiency, unspecified
CPT/HCPCS: 36415; 80061; 80076; 82306; 83036

== ENCOUNTER 2024-02-11 07:36 | Day surgery (SDC) | payer MEDICARE, SELFPAY ==
[2024-02-11] VITALS (11 sets, daily range): BP systolic 103–149; BP diastolic 31–64; BMI 38.8
[2024-02-11] MEDS: LOW STRENGTH ASPIRIN 81 MG PO (08:24)
[2024-02-11] MEDS: NSS 342 ML IV (08:25)
[2024-02-11 10:44] LABS: ACT-LR - POC 376 Seconds (116-155)
[2024-02-11 13:25] LABS: ACT-LR - POC > 397 Seconds (116-155)
--- NOTE | 2024-02-11 14:08 | ITS.CL.CATH ---
Addendum entered and electronically signed by Vaughn Calderon MD 02/12/24 10:59:
Attending addendum: Under procedure section I inadvertently dictated that we stented the proximal RCA and mid RCA rather than stenting of the proximal LAD and the mid LAD. The procedural section should read as below
PROCEDURES:
1. Successful stenting of the proximal LAD with a 3.0 x 22 mm [place] stent and of the mid LAD beyond the first diagonal branch with a 2.75 x 15 mm [place] stent. The stented segments were postdilated to high pressures with a 3.0 mm noncompliant balloon
Original Note:
Hydropulper Operator - Catheterization
Cardiac Catheterization
Procedure Report:
ANGIOPLASTY REPORT
Date of Procedure: February 11, 2024
Referring: Dr. Vaughn Moreland
INDICATIONS: New onset anginal symptoms with coronary angiography notable for high-grade proximal and mid LAD stenosis. PCI was not performed at the time of initial catheterization as the patient reported recurring issues with hematuria. His
hemoglobin was stable. He was loaded with clopidogrel and seen by urology. He was continued with dual antiplatelet therapy for 7 to 10 days with no significant bleeding and returns for elective intervention of the high-grade RCA stenosis.
PROCEDURES:
1. Successful stenting of the proximal RCA with a 3.0 x 22 mm [place] stent in of the mid RCA beyond the first diagonal branch with a 2.75 x 15 mm [place] stent. The stented segments were postdilated to high pressures with a 3.0 mm noncompliant balloon
ACCESS: Right radial artery, 6 [place] sheath
ANGIOPLASTY REPORT: Arterial access was obtained in the right radial artery and a 6 [place] sheath was inserted. The origin of the left main was cannulated with a 6 [place] EBU 3.75 guiding catheter and a BMW guidewire across the stenosis in the mid
LAD and was advanced to the distal vessel. The patient arrived to the catheterization laboratory on aspirin and clopidogrel. Intravenous heparin was administered during the procedure and the ACT was monitored and maintained within therapeutic
limits. Primary stenting was performed with placement of a 2.75 x 15 mm Shawn stent across the mid LAD stenosis beyond the diagonal branch. The Shawn stent was implanted at nominal pressures. A 3.0 x 22 mm [place] stent was then advanced over the
guidewire in position across the proximal stenosis in the LAD and was implanted at nominal pressures. Both stented segments were postdilated with a 3 mm noncompliant balloon inflated to high pressures with a nice angiographic result
COMPLICATIONS: None
RADIATION SUMMARY: Fluoro Time (min): 10.6, Dose (mGy): 764, DAP (Gy.cm2) : 30.9
CONCLUSION
1. Successful stenting of the proximal and mid LAD as described above
RECOMMENDATIONS
1. According to most recent AHA/ACC Guidelines on DAPT Strategy Post PCI in higher bleeding risk patients: 1-3 months of dual antiplatelet therapy followed by discontinuation of aspirin after 1-3 months with continuation of P2Y12 monotherapy (IIa).
(NOTE: aspirin MUST be started if P2Y12 therapy needs to be interrupted for any reason)
Copy to: Dr. Vaughn Moreland
--- NOTE | 2024-02-11 14:52 | W.PN.UPDATE ---
Update Note
Progress Note Update
Pt seen post LAD, Diagonal PCI. Right radial cath site without ht/bleeding. OOB to chair. Post EKG SB 50s w/PACs as before, no acute changes. Pt understands importance of uninterrupted DAPT w/asa, plavix. Pt has history of hematuria d/t interstitial
cystitis, and Urology at [facility] had cleared the use of DAPT fot this patient. Should the patient develop recurrent hematuria on DAPT, he will notify urology first and then will discuss with cardiology. Cardiac rehab consulted. Followup with PCP
this week as already scheduled, and DCA in 2 weeks for cardiology followup. Home later today if cath site/tele remain stable.
== END 2024-02-11 16:05 | disposition home or self-care (01) ==
LOC: CATH 07:36
PROVIDERS: ATTENDING PHYSICIAN Internal Medicine Interventional Cardiology; FAMILY PHYSICIAN Family Medicine
DX: I25.10 Atherosclerotic heart disease of native coronary artery without angina pectoris (principal); R07.89 Other chest pain; I10 Essential (primary) hypertension; I45.10 Unspecified right bundle-branch block; E78.00 Pure hypercholesterolemia, unspecified; K21.9 Gastro-esophageal reflux disease without esophagitis; Z85.46 Personal history of malignant neoplasm of prostate; Z87.891 Personal history of nicotine dependence; Z79.02 Long term (current) use of antithrombotics/antiplatelets; Z79.82 Long term (current) use of aspirin
CPT/HCPCS: C1769; C1725; C1874; 85347; 93005; C1894; C9600; Q9967

== ENCOUNTER 2024-04-11 14:31 | Outpatient (RCR) | payer MEDICARE, SELFPAY | END 2024-04-11 23:59 | disposition home or self-care (01) | LOC: CRHB 14:31 | PROVIDERS: ATTENDING PHYSICIAN Internal Medicine Cardiovascular Disease | DX: I25.10 Atherosclerotic heart disease of native coronary artery without angina pectoris (principal); Z95.5 Presence of coronary angioplasty implant and graft | CPT/HCPCS: G0422; G0423 ==

== ENCOUNTER 2024-05-07 13:42 | Outpatient (RCR) | payer MEDICARE, SELFPAY | END 2024-05-07 23:59 | disposition home or self-care (01) | LOC: CRHB 13:42 | PROVIDERS: ATTENDING PHYSICIAN Internal Medicine Cardiovascular Disease | DX: I25.10 Atherosclerotic heart disease of native coronary artery without angina pectoris (principal); Z95.5 Presence of coronary angioplasty implant and graft | CPT/HCPCS: G0422; G0423 ==

== ENCOUNTER 2024-06-09 13:14 | Outpatient (RCR) | payer MEDICARE, SELFPAY | END 2024-06-09 23:59 | disposition home or self-care (01) | LOC: CRHB 13:14 | PROVIDERS: ATTENDING PHYSICIAN Internal Medicine Cardiovascular Disease | DX: I25.10 Atherosclerotic heart disease of native coronary artery without angina pectoris (principal); Z95.5 Presence of coronary angioplasty implant and graft | CPT/HCPCS: G0422; G0423 ==

== ENCOUNTER → 2024-08-13 10:07 | Outpatient (REF) | payer MEDICARE, SELFPAY ==
[2024-08-13 16:47] LABS: ALT (SGPT) 29 U/L (0-50); AST (SGOT) 21 U/L (17-59); Albumin 4.1 g/dl (3.5-5.0); Alkaline Phosphatase 96 U/L (38-126); Direct Bilirubin 0.2 mg/dl (0.0-0.4); HDL Cholesterol 39 mg/dl; LDL Cholesterol, Calculated 26 mg/dl; Total Bilirubin 0.7 mg/dl (0.2-1.3); Total Cholesterol 78 mg/dl (50-199); Total Protein 6.2 g/dl (6.3-8.2); Triglyceride 68 mg/dl (10-149); Very Low Density Lipoprotein 13 mg/dl (0-30)
[2024-08-13 17:02] LABS: Vitamin D, 25-OH*** 54.2 ng/mL (30-80)
[2024-08-13 17:16] LABS: PSA, Total - Diagnostic < 0.06 ng/ml (0.0-4.0)
[2024-08-14 08:21] LABS: Glycohemoglobin (HgbA1c) 5.9 % (4.0-5.6)
== END ==
LOC: HWLAB 10:07
PROVIDERS: ATTENDING PHYSICIAN Advanced Practice Midwife; FAMILY PHYSICIAN Family Medicine
DX: C61 Malignant neoplasm of prostate (principal); E78.2 Mixed hyperlipidemia; R73.01 Impaired fasting glucose; E55.9 Vitamin D deficiency, unspecified; Z95.5 Presence of coronary angioplasty implant and graft
CPT/HCPCS: 36415; 80061; 80076; 82306; 83036; 84153

== ENCOUNTER → 2025-03-11 07:55 | Outpatient (REF) | payer MEDICARE, SELFPAY ==
[2025-03-11 10:02] LABS: Hematocrit 47.8 % (39.0-52.0); Hemoglobin 15.9 g/dL (13.0-18.0); Mean Corp Hgb Conc. 33.3 g/dL (33.0-37.0); Mean Corpuscular Hgb 30.5 pg (27.0-31.0); Mean Corpuscular Volume 91.6 fL (80.0-94.0); Mean Platelet Volume 11.2 fL (7.4-10.4); Platelet Count 158 10^3/uL (130-400); Red Blood Cell Count 5.22 10^6/uL (4.70-6.10); Red Cell Dist. Width 13.7 % (11.5-14.5); White Blood Cell Count 9.8 10^3/uL (4.8-10.8)
[2025-03-11 10:20] LABS: ALT (SGPT) 25 U/L (0-50); AST (SGOT) 20 U/L (17-59); Albumin 4.4 g/dl (3.5-5.0); Alkaline Phosphatase 95 U/L (38-126); Blood Urea Nitrogen 19 mg/dl (9-20); Calcium 9.3 mg/dl (8.4-10.2); Carbon Dioxide 26 mmol/L (22-30); Chloride 106 mmol/L (98-107); Glucose 101 mg/dl (70-99); HDL Cholesterol 46 mg/dl; LDL Cholesterol, Calculated 23 mg/dl; Potassium 4.2 mmol/L (3.5-5.1); Sodium 142 mmol/L (135-145); Total Bilirubin 0.9 mg/dl (0.2-1.3); Total Cholesterol 82 mg/dl (50-199); Total Protein 6.4 g/dl (6.3-8.2); Triglyceride 69 mg/dl (10-149); Very Low Density Lipoprotein 13 mg/dl (0-30); eGFR > 60.00
[2025-03-11 10:30] LABS: Glycohemoglobin (HgbA1c) 5.7 % (4.0-5.6)
[2025-03-11 10:52] LABS: TSH 1.51 uIU/ml (0.47-4.68)
[2025-03-11 11:14] LABS: % Basophils 0.7 % (0-2); % Immature Granulocytes 0.6 % (0-0.5); % Lymphocytes 32.4 % (20.5-51.1); % Monocytes 6.9 % (1.7-9.3); % Neutrophils 57.4 % (42.2-75.2); Absolute Basophils 0.1 10^3/uL (0-0.2); Absolute Eosinophils 0.2 10^3/uL (0-0.7); Absolute Immature Granulocytes 0.1 10^3/uL (0-0.05); Absolute Lymphocytes 3.2 10^3/uL (1.2-3.4); Absolute Monocytes 0.7 10^3/uL (0.1-0.6); Absolute Neutrophils 5.6 10^3/uL (1.4-6.5); Nucleated Red Blood Cells % 0 % (-)
== END ==
LOC: HWLAB 07:55
PROVIDERS: ATTENDING PHYSICIAN Family Medicine; OTHER PHYSICIAN Internal Medicine Cardiovascular Disease; REFERRING PHYSICIAN Urology
DX: E55.9 Vitamin D deficiency, unspecified (principal); E78.2 Mixed hyperlipidemia; R73.01 Impaired fasting glucose
CPT/HCPCS: 36415; 80053; 80061; 83036; 84443; 85025

== ENCOUNTER → 2025-05-18 13:12 | Outpatient (REF) | payer MEDICARE, SELFPAY | LOC: HWRAD 13:12 | PROVIDERS: ATTENDING PHYSICIAN Family Medicine | DX: I65.29 Occlusion and stenosis of unspecified carotid artery (principal); I65.23 Occlusion and stenosis of bilateral carotid arteries | CPT/HCPCS: 93880 ==